=== PATIENT | female | born 1945 | race Caucasian/White ===

== ENCOUNTER 2020-10-23 21:03 | Inpatient (IN) | payer MEDICARE, BC ==
[2020-10-23] MEDS ORDERED: PANTOPRAZOLE 40 MG/10 ML VIAL IVP STA (21:23)
[2020-10-23] MEDS ORDERED: SODIUM CHLORIDE 0.9% 1,000 ML IV STA ×2 (21:23→23:58)
[2020-10-23] MEDS ORDERED: cefTRIAXone IN SWFI 1,000 MG/10 ML SYRINGE IVP STA (21:32)
[2020-10-23 22:05] LABS: Basophils # (A) 0.1 k/uL (0-0.2); Basophils % (A) 0 %; Eosinophils # (A) 0.1 k/uL (0-0.7); Eosinophils % (A) 1 %; HCT 47.5 % (34.0-46.0); HGB 15.9 gm/dL (11.4-16.0); Lymphocytes # (A) 2.6 k/uL (1.0-4.8); Lymphocytes % (A) 20 %; MCH 32.3 pg (25.0-35.0); MCHC 33.6 g/dL (31.0-37.0); MCV 96.2 fL (80.0-100.0); Mean Platelet Volume 7.4; Monocytes # (A) 0.4 k/uL (0-1.0); Monocytes % (A) 3 %; Neutrophils # (A) 9.6 k/uL (1.3-7.7); Neutrophils % (A) 74 %; Platelet Count 246 k/uL (150-450); RBC 4.94 m/uL (3.80-5.40); RDW 12.8 % (11.5-15.5); WBC 12.9 k/uL (3.8-10.6)
--- NOTE | 2020-10-23 22:06 | ED ---
Abdominal Pain HPI - General Chief Complaint: Abdominal Pain Stated Complaint: abd pain, fever Time Seen by Provider: 10/23/20 21:12 Source: patient Mode of arrival: ambulatory Limitations: no limitations - History of Present Illness Initial Comments: 74-year-old female presents to emergency Department with a chief complaint of abdominal pain. Patient reports she began having some lower abdominal symptoms about 2 days ago. However, last night she states the pain increased in severity. States it as constant and dull in nature. 10. States it is worse with left to right rotation and palpation to the region. Does not seem to postprandial. She denies any radiation of the pain. Does report feeling slightly nauseous but denies any vomiting or diarrhea. States her last bowel movement was yesterday. States she does have decreased appetite due to the pain. She denies any vaginal urinary symptoms. Denies any chest pain shortness of breath. Denies any fevers or chills. Vaccinated. - Related Data Home Medications Medication Instructions Recorded Confirmed Aspirin EC [Ecotrin Low Dose] 81 mg PO Q48H 10/23/20 10/23/20 Calcium Carbonate/Vitamin D3 1 tab PO DAILY 10/23/20 10/23/20 [Calcium 500 mg-Vit D3 5 mcg (200 Unit)] Cholecalciferol [Vitamin D3 (25 25 mcg PO DAILY 10/23/20 10/23/20 Mcg = 1000 Iu)] Citalopram Hydrobromide [CeleXA] 10 mg PO DAILY 10/23/20 10/23/20 Levothyroxine Sodium [Synthroid] 88 mcg PO DAILY 10/23/20 10/23/20 Pravastatin Sodium [Pravachol] 40 mg PO DAILY 10/23/20 10/23/20 Ubidecarenone [Co Q-10] 100 mg PO DAILY 10/23/20 10/23/20 Allergies Allergy/AdvReac Type Severity Reaction Status Date / Time No Known Allergies Allergy Verified 10/23/20 22:41 Review of Systems ROS Statement: Those systems with pertinent positive or pertinent negative responses have been documented in the HPI. ROS Other: All systems not noted in ROS Statement are negative. Past Medical History Past Medical History: No Reported History History of Any Multi-Drug Resistant Organisms: None Reported Past Surgical History: Orthopedic Surgery Past Psychological History: Anxiety Smoking Status: Current some day smoker Past Alcohol Use History: Occasional Past Drug Use History: None Reported General Exam Limitations: no limitations General appearance: alert, in no apparent distress Head exam: Present: atraumatic, normocephalic, normal inspection Eye exam: Present: normal appearance, PERRL, EOMI Pupils: Present: normal accommodation ENT exam: Present: normal exam, normal oropharynx, mucous membranes moist Neck exam: Present: normal inspection, full ROM. Absent: tenderness Respiratory exam: Present: normal lung sounds bilaterally. Absent: respiratory distress, wheezes, rales, rhonchi, stridor, chest wall tenderness, accessory muscle use Cardiovascular Exam: Present: regular rate, normal rhythm, normal heart sounds. Absent: systolic murmur, diastolic murmur GI/Abdominal exam: Present: soft, tenderness (Diffuse lower abdominal tenderness. Right lower quadrant tenderness.). Absent: distended, guarding, rebound, rigid Extremities exam: Present: normal inspection, full ROM, normal capillary refill. Absent: tenderness Back exam: Present: normal inspection, full ROM. Absent: tenderness, CVA tenderness (R), CVA tenderness (L) Neurological exam: Present: alert, oriented X3, normal gait Psychiatric exam: Present: normal affect, normal mood Skin exam: Present: warm, dry, intact, normal color Course Vital Signs 10/23/20 21:04 Temperature 99.4 F Pulse Rate 109 H Respiratory 22 Rate Blood Pressure 127/71 O2 Sat by Pulse 97 Oximetry Medical Decision Making - Medical Decision Making 74-year-old female presents to emergency Department with a chief complaint of abdominal pain. On physical examination, lower abdominal and right lower quadrant tenderness. CBC reveals mild leukocytosis 12,000. She does have elevated lipase of 600. Not an alcoholic drinker. CT of abdomen of abdomen and pelvis proximal colon diverticulitis. Patient also has a distended gallbladder but cholecystitis cannot be excluded. Patient will be admitted for evaluation. Ultrasound of the right upper quadrant pending. Patient will be started on Unasyn. Case discussed with who will admit. case discused with dr cantrell. - Lab Data Result diagrams: 10/23/20 21:30 10/23/20 21:30 Lab Results 10/23/20 10/23/20 10/23/20 Range/Units 21:30 21:30 21:30 WBC 12.9 H (3.8-10.6) k/uL RBC 4.94 (3.80-5.40) m/uL Hgb 15.9 (11.4-16.0) gm/dL Hct 47.5 H (34.0-46.0) % MCV 96.2 (80.0-100.0) fL MCH 32.3 (25.0-35.0) pg MCHC 33.6 (31.0-37.0) g/dL RDW 12.8 (11.5-15.5) % Plt Count 246 (150-450) k/uL MPV 7.4 Neutrophils % 74 % Lymphocytes % 20 % Monocytes % 3 % Eosinophils % 1 % Basophils % 0 % Neutrophils # 9.6 H (1.3-7.7) k/uL Lymphocytes # 2.6 (1.0-4.8) k/uL Monocytes # 0.4 (0-1.0) k/uL Eosinophils # 0.1 (0-0.7) k/uL Basophils # 0.1 (0-0.2) k/uL Sodium 135 L (137-145) mmol/L Potassium 3.9 (3.5-5.1) mmol/L Chloride 103 (98-107) mmol/L Carbon Dioxide 22 (22-30) mmol/L Anion Gap 10 mmol/L BUN 18 H (7-17) mg/dL Creatinine 0.54 (0.52-1.04) mg/dL Est GFR (CKD-EPI)AfAm >90 (>60 ml/min/1.73 sqM) Est GFR (CKD-EPI)NonAf >90 (>60 ml/min/1.73 sqM) Glucose 113 H (74-99) mg/dL Plasma Lactic Acid Miguelangel 0.8 (0.7-2.0) mmol/L Calcium 9.5 (8.4-10.2) mg/dL Total Bilirubin 0.8 (0.2-1.3) mg/dL AST 23 (14-36) U/L ALT 16 (4-34) U/L Alkaline Phosphatase 102 (38-126) U/L Total Protein 6.8 (6.3-8.2) g/dL Albumin 4.1 (3.5-5.0) g/dL Lipase 563 H (23-300) U/L Coronavirus (PCR) (Not Detectd) 10/23/20 Range/Units 21:34 WBC (3.8-10.6) k/uL RBC (3.80-5.40) m/uL Hgb (11.4-16.0) gm/dL Hct (34.0-46.0) % MCV (80.0-100.0) fL MCH (25.0-35.0) pg MCHC (31.0-37.0) g/dL RDW (11.5-15.5) % Plt Count (150-450) k/uL MPV Neutrophils % % Lymphocytes % % Monocytes % % Eosinophils % % Basophils % % Neutrophils # (1.3-7.7) k/uL Lymphocytes # (1.0-4.8) k/uL Monocytes # (0-1.0) k/uL Eosinophils # (0-0.7) k/uL Basophils # (0-0.2) k/uL Sodium (137-145) mmol/L Potassium (3.5-5.1) mmol/L Chloride (98-107) mmol/L Carbon Dioxide (22-30) mmol/L Anion Gap mmol/L BUN (7-17) mg/dL Creatinine (0.52-1.04) mg/dL Est GFR (CKD-EPI)AfAm (>60 ml/min/1.73 sqM) Est GFR (CKD-EPI)NonAf (>60 ml/min/1.73 sqM) Glucose (74-99) mg/dL Plasma Lactic Acid Miguelangel (0.7-2.0) mmol/L Calcium (8.4-10.2) mg/dL Total Bilirubin (0.2-1.3) mg/dL AST (14-36) U/L ALT (4-34) U/L Alkaline Phosphatase (38-126) U/L Total Protein (6.3-8.2) g/dL Albumin (3.5-5.0) g/dL Lipase (23-300) U/L Coronavirus (PCR) Not Detected (Not Detectd) - EKG Data EKG Comments: Sinus rhythm Ventricular rate 98, IA 156, QRS 90, QTC 431. Disposition Clinical Impression: Elevated lipase, Diverticulitis Disposition: ADMITTED IP TO THIS HOSP Condition: Fair Is patient prescribed a controlled substance at d/c from ED?: No Referrals: Zechariah Corral DO [Primary Care Provider] - 1-2 days Time of Disposition: 00:01
[2020-10-23 22:23] LABS: ALT 16 U/L (4-34); AST 23 U/L (14-36); African American GFR (CKD) >90 (>60 ml/min/1.73 sqM); Albumin 4.1 g/dL (3.5-5.0); Alkaline Phosphatase 102 U/L (38-126); Anion Gap 10 mmol/L; Blood Urea Nitrogen 18 mg/dL (7-17); Calcium 9.5 mg/dL (8.4-10.2); Carbon Dioxide 22 mmol/L (22-30); Chloride 103 mmol/L (98-107); Glucose 113 mg/dL (74-99); Lipase 563 U/L (23-300); Non-African American GFR(CKD) >90 (>60 ml/min/1.73 sqM); Potassium 3.9 mmol/L (3.5-5.1); Sodium 135 mmol/L (137-145); Total Bilirubin 0.8 mg/dL (0.2-1.3); Total Protein 6.8 g/dL (6.3-8.2)
--- NOTE | 2020-10-23 23:02 | CT ---
EXAMINATION TYPE: CT abdomen pelvis w con DATE OF EXAM: 10/23/2020 COMPARISON: None HISTORY: RLQ pain CT DLP: 1166.9 mGycm Automated exposure control for dose reduction was used. CONTRAST: Performed with IV Contrast, patient injected with 100 mL of Isovue 300. Images obtained from the diaphragm to the floor the pelvis with IV contrast. Lung bases are clear of infiltrate. There is no pleural effusion. Heart size is normal. There is no p ericardial effusion. Liver spleen stomach pancreas appear intact. The bile ducts are not dilated. There are several calcif ied gallstones. Gallbladder is distended and measures 4.4 cm in diameter. There is no adrenal mass. Kidneys show satisfactory contrast opacification. There is no hydronephrosi s. The ureters are not dilated. Delayed images show normal renal excretion. There is no retroperitone al adenopathy. Bladder distends smoothly. There is no inguinal hernia. There are numerous sigmoid diverticula. There is some mild fat stranding around the proximal sigmoid colon anteriorly. There is no bowel obstruction. Appendix is medial and inferior and appears normal. Lumbar vertebra have normal alignment. There is no compression fracture. Multilevel degenerative disc narrowing and vacuum disc is noted. The bony pelvis is intact. There is hypertrophic osteoarthritis in the right hip joint. Sacroiliac joints are intact. There is slight lumbar levoscoliosis. IMPRESSION: There is proximal sigmoid diverticulitis. No abscess fluid drainable pockets seen. Normal appendix. Cholelithiasis. Distended gallbladder could relate to gallbladder dysfunction. Cholecystitis not excl uded. Extensive colonic diverticulosis.
[2020-10-23] MEDS ORDERED: NALOXONE 0.4 MG/ML 1 ML VIAL IV PRN (23:56)
[2020-10-23] MEDS ORDERED: ONDANSETRON 4 MG/2 ML VIAL IVP PRN (23:58)
[2020-10-23] MEDS ORDERED: Acetaminophen-Codeine 300-30mg TAB PO STA (23:58)
[2020-10-24 00:10] LABS: Appearance,Urine Clear (Clear); Bilirubin,Urine Negative (Negative); Blood,Urine Negative (Negative); Color,Urine Light Yellow; Glucose,Urine (UA) Negative (Negative); Ketones,Urine 1+ (Negative); Leukocyte Esterase,Urine Trace (Negative); Mucus,Urine Rare /hpf; Nitrite,Urine Negative (Negative); Protein,Urine Negative (Negative); RBC,Urine <1 /hpf (0-5); Specific Gravity,Urine 1.023 (1.001-1.035); Squamous Epithelial Cell,Urine <1 /hpf (0-4); Urobilinogen,Urine <2.0 mg/dL (<2.0); WBC,Urine 4 /hpf (0-5)
--- NOTE | 2020-10-24 08:08 | US ---
EXAMINATION TYPE: US gallbladder DATE OF EXAM: 10/24/2020 COMPARISON: NONE CLINICAL HISTORY: 74-year-old female pain. With diverticulitis patient with CT that showed GB stones EXAM MEASUREMENTS: Liver Length: 18.8 cm Gallbladder Wall: 0.2 cm CBD: 0.9 cm Right Kidney: 10.0 x 4.4 x 4.6 cm Pancreas: Suboptimal visualization of the pancreatic tail. Visualized portions within normal limits. Liver: wnl Gallbladder: mobile stones seen with no wall thickening, slightly hydropic Evidence for sonographic Gibbs's sign: no CBD: Mildly dilated. Right Kidney: wnl IMPRESSION: 1. Multiple gallstones. Gallbladder mildly hydropic. No wall thickening, surrounding fluid, or sonogr aphic Gibbs sign to suggest acute cholecystitis. The hydropic change may relate to fasting state. Ei ther follow-up ultrasound or HIDA scan can be performed if indicated. 2. Bile duct is mildly dilated at 9 mm. This is slightly more than expected for the patient's age. It may still be chronic. Correlate with alkaline phosphatase and bilirubin levels to exclude early bili fani obstruction.
[2020-10-24] MEDS ORDERED: ASPIRIN 81 MG PO SCH (10:45)
[2020-10-24] MEDS: PRAVASTATIN SODIUM 40 MG TAB PO SCH (11:38)
[2020-10-24] MEDS: LEVOTHYROXINE 88 MCG TAB PO SCH (11:38)
[2020-10-24] MEDS: ENOXAPARIN 40 MG/0.4 ML SYRINGE SQ SCH (11:41)
[2020-10-24] MEDS: PIPERACILLIN-TAZOBACTAM 3.375 GM in SODIUM CHLORIDE 0.9% 100 ML IVPB SCH ×2 (11:45→19:25)
[2020-10-24] MEDS: CITALOPRAM HYDROBROMIDE 10 MG TAB PO SCH (11:45)
--- NOTE | 2020-10-24 11:52 | P.GSCN ---
<Glenna Barragan - Last Filed: 10/24/20 11:40> History of Present Illness Consult date: 10/24/20 History of present illness: CHIEF COMPLAINT: Left lower quadrant abdominal pain HISTORY OF PRESENT ILLNESS: This is a 74-year-old female who presents to the hospital with complaints of left lower quadrant abdominal pain and low-grade fevers at home. She reports that she is had pain for about 3 days. She rates the pain about 8 out of 10. She was that she felt very on comfortable. She had a temp at home in the 100.5. She's been taking Tylenol to help with the pain. She denies any nausea vomiting. She does have issues with constipation. But had had bowel movements with no blood noted. Patient's last colonoscopy was about 10 years ago and she reports that it was normal. She had a computed tomography scan of abdomen and pelvis showing proximal sigmoid diverticulitis. No abscess. Normal appendix. Cholelithiasis. Distended gallbladder could relate to gallbladder dysfunction. Cholecystitis not excluded. Extensive colonic diverticulosis. Gallbladder ultrasound shows multiple gallstones. Gallbladder mildly hypertropic. No wall thickening, surrounding fluid or Gibbs sign to suggest acute cholecystitis. The change may relate to fasting state. Bile duct is mildly dilated at 9 mm. It may be chronic. Patient denies any right upper quadrant abdominal pain. She denies any nausea or vomiting after eating or any pain after eating. She denies any sensitivity to fatty foods or greasy foods. Surgical consult placed for gallstones. Surgical history includes a partial hysterectomy. PAST MEDICAL HISTORY: See list. PAST SURGICAL HISTORY: See list. MEDICATIONS: See list. ALLERGIES: See list. SOCIAL HISTORY: No illicit drug use. REVIEW OF SYSTEMS: CONSTITUTIONAL: Denies fever or chills. HEENT: Denies blurred vision, vision changes, or eye pain. Denies hemoptysis CARDIOVASCULAR: Denies chest pain or pressure. RESPIRATORY: No shortness of breath. GASTROINTESTINAL: See HPI for pertinent findings HEMATOLOGIC: Denies bleeding disorders. GENITOURINARY: Denies any blood in urine or increased urinary frequency. SKIN: Denies pruitis. Denies rash. PHYSICAL EXAM: VITAL SIGNS: Reviewed GENERAL: Well-developed in no acute distress. HEENT: No sclera icterus. Extraocular movements grossly intact. Moist buccal mucosa. Head is atraumatic, normocephalic. No nasal drainage. ABDOMEN: Soft. Nondistended. Left lower quadrant tenderness with palpation NEUROLOGIC: Alert and oriented. Cranial nerves II through XII grossly intact. LABORATORY DATA: WBC is 12.9 hemoglobin 15.9 platelets 246 sodium 135 creatinine 0.5 for lactic 0.8 LFTs normal Total bili normal at 0.8 alk phos 102 lipase 563 UA negative for infection Covid not detected IMAGING: CAT scan and ultrasound findings as stated above ASSESSMENT: 1. Acute diverticulitis of the sigmoid colon 2. Asymptomatic cholelithiasis 3. Elevated lipase PLAN: -Further recommendations forthcoming per surgeon -Continue antibiotics for the diverticulitis -Continue conservative management Thank you for this consultation Physician [employer] Beauty [employer] Assistant note has been reviewed by physician. Signing provider agrees with the documented findings, assessment, and plan of care. Past Medical History Past Medical History: No Reported History, Hyperlipidemia, Osteoarthritis (OA), Thyroid Disorder History of Any Multi-Drug Resistant Organisms: None Reported Past Surgical History: Orthopedic Surgery Additional Past Surgical History / Comment(s): total left knee, right toe bone spur removal, partial hyterectomy Past Anesthesia/Blood Transfusion Reactions: No Reported Reaction Past Psychological History: Anxiety Smoking Status: Current some day smoker Past Alcohol Use History: Occasional Past Drug Use History: None Reported Medications and Allergies Home Medications Medication Instructions Recorded Confirmed Type Aspirin EC [Ecotrin Low Dose] 81 mg PO Q48H 10/23/20 10/23/20 History Calcium Carbonate/Vitamin D3 1 tab PO DAILY 10/23/20 10/23/20 History [Calcium 500 mg-Vit D3 5 mcg (200 Unit)] Cholecalciferol [Vitamin D3 (25 25 mcg PO DAILY 10/23/20 10/23/20 History Mcg = 1000 Iu)] Citalopram Hydrobromide [CeleXA] 10 mg PO DAILY 10/23/20 10/23/20 History Levothyroxine Sodium [Synthroid] 88 mcg PO DAILY 10/23/20 10/23/20 History Pravastatin Sodium [Pravachol] 40 mg PO DAILY 10/23/20 10/23/20 History Ubidecarenone [Co Q-10] 100 mg PO DAILY 10/23/20 10/23/20 History Allergies Allergy/AdvReac Type Severity Reaction Status Date / Time No Known Allergies Allergy Verified 10/23/20 22:41 Surgical - Exam Vital Signs Temp Pulse Resp BP Pulse Ox 99.4 F 109 H 22 127/71 97 10/23/20 21:04 10/23/20 21:04 10/23/20 21:04 10/23/20 21:04 10/23/20 21:04 Results - Labs 10/23/20 21:30 10/23/20 21:30 Abnormal Lab Results - Last 24 Hours (Table) 10/23/20 10/23/20 10/24/20 Range/Units 21:30 21:30 00:00 WBC 12.9 H (3.8-10.6) k/uL Hct 47.5 H (34.0-46.0) % Neutrophils # 9.6 H (1.3-7.7) k/uL Sodium 135 L (137-145) mmol/L BUN 18 H (7-17) mg/dL Glucose 113 H (74-99) mg/dL Lipase 563 H (23-300) U/L Urine Ketones 1+ H (Negative) Ur Leukocyte Esterase Trace H (Negative) Urine Mucus Rare H (None) /hpf Diabetes panel 10/23/20 Range/Units 21:30 Sodium 135 L (137-145) mmol/L Potassium 3.9 (3.5-5.1) mmol/L Chloride 103 (98-107) mmol/L Carbon Dioxide 22 (22-30) mmol/L BUN 18 H (7-17) mg/dL Creatinine 0.54 (0.52-1.04) mg/dL Glucose 113 H (74-99) mg/dL Calcium 9.5 (8.4-10.2) mg/dL AST 23 (14-36) U/L ALT 16 (4-34) U/L Alkaline Phosphatase 102 (38-126) U/L Total Protein 6.8 (6.3-8.2) g/dL Albumin 4.1 (3.5-5.0) g/dL Calcium panel 10/23/20 Range/Units 21:30 Calcium 9.5 (8.4-10.2) mg/dL Albumin 4.1 (3.5-5.0) g/dL Pituitary panel 10/23/20 Range/Units 21:30 Sodium 135 L (137-145) mmol/L Potassium 3.9 (3.5-5.1) mmol/L Chloride 103 (98-107) mmol/L Carbon Dioxide 22 (22-30) mmol/L BUN 18 H (7-17) mg/dL Creatinine 0.54 (0.52-1.04) mg/dL Glucose 113 H (74-99) mg/dL Calcium 9.5 (8.4-10.2) mg/dL Adrenal panel 10/23/20 Range/Units 21:30 Sodium 135 L (137-145) mmol/L Potassium 3.9 (3.5-5.1) mmol/L Chloride 103 (98-107) mmol/L Carbon Dioxide 22 (22-30) mmol/L BUN 18 H (7-17) mg/dL Creatinine 0.54 (0.52-1.04) mg/dL Glucose 113 H (74-99) mg/dL Calcium 9.5 (8.4-10.2) mg/dL Total Bilirubin 0.8 (0.2-1.3) mg/dL AST 23 (14-36) U/L ALT 16 (4-34) U/L Alkaline Phosphatase 102 (38-126) U/L Total Protein 6.8 (6.3-8.2) g/dL Albumin 4.1 (3.5-5.0) g/dL <Ming Martinez - Last Filed: 10/24/20 16:18> History of Present Illness History of present illness: As above. Patient admitted with left lower quadrant pain and acute diverticulitis. We were however apparently consulted for cholelithiasis. Patient says her left lower quadrant pain is improving. No upper abdominal discomfort. No inflammatory changes seen on ultrasound at this time. Continue antibiotics for diverticulitis. Continue gradually advancing diet. No surgical intervention planned for cholelithiasis however outpatient follow-up to discuss colonoscopy will be arranged. Surgical - Exam Vital Signs Temp Pulse Resp BP Pulse Ox 99.4 F 109 H 22 127/71 97 10/23/20 21:04 10/23/20 21:04 10/23/20 21:04 10/23/20 21:04 10/23/20 21:04 Results - Labs 10/23/20 21:30 10/23/20 21:30 Abnormal Lab Results - Last 24 Hours (Table) 10/23/20 10/23/20 10/24/20 Range/Units 21:30 21:30 00:00 WBC 12.9 H (3.8-10.6) k/uL Hct 47.5 H (34.0-46.0) % Neutrophils # 9.6 H (1.3-7.7) k/uL Sodium 135 L (137-145) mmol/L BUN 18 H (7-17) mg/dL Glucose 113 H (74-99) mg/dL Lipase 563 H (23-300) U/L Urine Ketones 1+ H (Negative) Ur Leukocyte Esterase Trace H (Negative) Urine Mucus Rare H (None) /hpf Diabetes panel 10/23/20 Range/Units 21:30 Sodium 135 L (137-145) mmol/L Potassium 3.9 (3.5-5.1) mmol/L Chloride 103 (98-107) mmol/L Carbon Dioxide 22 (22-30) mmol/L BUN 18 H (7-17) mg/dL Creatinine 0.54 (0.52-1.04) mg/dL Glucose 113 H (74-99) mg/dL Calcium 9.5 (8.4-10.2) mg/dL AST 23 (14-36) U/L ALT 16 (4-34) U/L Alkaline Phosphatase 102 (38-126) U/L Total Protein 6.8 (6.3-8.2) g/dL Albumin 4.1 (3.5-5.0) g/dL Calcium panel 10/23/20 Range/Units 21:30 Calcium 9.5 (8.4-10.2) mg/dL Albumin 4.1 (3.5-5.0) g/dL Pituitary panel 10/23/20 Range/Units 21:30 Sodium 135 L (137-145) mmol/L Potassium 3.9 (3.5-5.1) mmol/L Chloride 103 (98-107) mmol/L Carbon Dioxide 22 (22-30) mmol/L BUN 18 H (7-17) mg/dL Creatinine 0.54 (0.52-1.04) mg/dL Glucose 113 H (74-99) mg/dL Calcium 9.5 (8.4-10.2) mg/dL Adrenal panel 10/23/20 Range/Units 21:30 Sodium 135 L (137-145) mmol/L Potassium 3.9 (3.5-5.1) mmol/L Chloride 103 (98-107) mmol/L Carbon Dioxide 22 (22-30) mmol/L BUN 18 H (7-17) mg/dL Creatinine 0.54 (0.52-1.04) mg/dL Glucose 113 H (74-99) mg/dL Calcium 9.5 (8.4-10.2) mg/dL Total Bilirubin 0.8 (0.2-1.3) mg/dL AST 23 (14-36) U/L ALT 16 (4-34) U/L Alkaline Phosphatase 102 (38-126) U/L Total Protein 6.8 (6.3-8.2) g/dL Albumin 4.1 (3.5-5.0) g/dL
--- NOTE | 2020-10-24 12:26 | P.HPIM ---
History of Present Illness H&P Date: 10/24/20 Chief Complaint: Abdominal pain History of presenting complaint: This is a very pleasant 74-year-old patient of Dr. Corral. Chronic stable medical conditions include hyperlipidemia, osteoarthritis, hypothyroid. Patient is fairly active. About 4 days ago that is on Wednesday patient started developing some lower abdominal discomfort. As a day wore on the pain became more severe. She felt she may low-grade fever. No nausea vomiting. Normally has a bowel movement every day. Patient did not have a bowel movement yesterday or today. Presented to the ER. Computed tomography scan did show acute diverticulitis. Started on IV ceftriaxone. Feeling a bit better. Sitting up in a chair. No right upper quadrant pain. Review of systems: GEN.: Tired EYES: None HEENT: None NECK: None RESPIRATORY: None CARDIOVASCULAR: None GASTROINTESTINAL: As above GENITOURINARY: None MUSCULOSKELETAL: Joint pains LYMPHATICS: None HEMATOLOGICAL: None PSYCHIATRY: None NEUROLOGICAL: None Past medical history to include: Hyperlipidemia, osteoarthritis, hypothyroid Social history: . Lives alone. Alcohol and smoking socially Family history: Reviewed, noncontributory to presentation Physical examination: VITAL SIGNS: 99.4, 109, 22, 127/71, 97% room air upon presentation GENERAL: BMI 35.5, sitting up to chair, comfortable. EYES: Pupils equal. Conjunctiva normal. HEENT: External appearance of nose and ears normal, oral cavity grossly normal. NECK: JVD not raised; masses not palpable. HEART: First and second heart sounds are normal; no edema. LUNGS: Respiratory rate normal; clear to auscultation. ABDOMEN: Soft, mild tenderness, liver spleen not palpable, no masses palpable. PSYCH: Alert and oriented x3; mood and affect normal. MUSCULAR skeletal: Evidence of OA especially in the hands NEUROLOGICAL: Cranial nerves grossly intact; no facial asymmetry, power and sensation grossly intact. LYMPHATICS: No lymph nodes palpable in the axilla and neck INVESTIGATIONS, reviewed in the clinical context: WBC 12.9 hemoglobin 15.9 platelets 246 potassium 3.9 creatinine 0.5 for UA unremarkable Coronavirus [PCR]: Not detected Ultrasound gallbladder: Multiple gallstones. No wall thickening. Negative Gibbs sign. Hydropic change. Bile duct 9 mm. Computed tomography scan of the abdomen pelvis: Proximal sigmoid doubt typhlitis. Normal appendix. Cholelithiasis. Extensive colonic diverticulosis. Assessment and plan: -Acute sigmoid diverticulitis coming on over a span of 4 days. Tolerating clear liquids. Advance to full liquids this morning and hopefully to soft bland tomorrow morning depending on clinical course. IV Zosyn -Colonic diverticulosis extensive -Obesity BMI 35.5 Weight loss measures and follow-up with PCP -Asymptomatic gallstones Surgical consult -Hyperlipidemia Pravachol 40 mg daily -Hypothyroid Synthroid 88 g daily -Primary osteoarthritis Use pain medications as needed -Anxiety not otherwise specified Celexa 10 mg daily Care was discussed the patient. Questions answered. On clear liquids. Advance to full liquids and soft bland as tolerated. Home medications resumed. IV Zosyn. IV fluids. Lovenox for DVT prophylaxis. Increase activity as tolerated. General surgery consultation Past Medical History Past Medical History: No Reported History, Hyperlipidemia, Osteoarthritis (OA), Thyroid Disorder History of Any Multi-Drug Resistant Organisms: None Reported Past Surgical History: Orthopedic Surgery Additional Past Surgical History / Comment(s): total left knee, right toe bone spur removal, partial hyterectomy Past Anesthesia/Blood Transfusion Reactions: No Reported Reaction Past Psychological History: Anxiety Smoking Status: Current some day smoker Past Alcohol Use History: Occasional Past Drug Use History: None Reported Medications and Allergies Home Medications Medication Instructions Recorded Confirmed Type Aspirin EC [Ecotrin Low Dose] 81 mg PO Q48H 10/23/20 10/23/20 History Calcium Carbonate/Vitamin D3 1 tab PO DAILY 10/23/20 10/23/20 History [Calcium 500 mg-Vit D3 5 mcg (200 Unit)] Cholecalciferol [Vitamin D3 (25 25 mcg PO DAILY 10/23/20 10/23/20 History Mcg = 1000 Iu)] Citalopram Hydrobromide [CeleXA] 10 mg PO DAILY 10/23/20 10/23/20 History Levothyroxine Sodium [Synthroid] 88 mcg PO DAILY 10/23/20 10/23/20 History Pravastatin Sodium [Pravachol] 40 mg PO DAILY 10/23/20 10/23/20 History Ubidecarenone [Co Q-10] 100 mg PO DAILY 10/23/20 10/23/20 History Allergies Allergy/AdvReac Type Severity Reaction Status Date / Time No Known Allergies Allergy Verified 10/23/20 22:41 Physical Exam Vitals: Vital Signs Temp Pulse Pulse Resp BP BP Pulse Ox 10/24/20 05:15 98.3 F 83 18 108/58 97 10/24/20 00:00 98.3 F 91 18 113/71 96 10/23/20 21:04 99.4 F 109 H 22 127/71 97 Intake and Output 10/23/20 10/24/20 10/24/20 22:59 06:59 14:59 Other: Weight 77.111 kg 77.111 kg Results CBC & Chem 7: 10/23/20 21:30 10/23/20 21:30 Labs: Abnormal Lab Results - Last 24 Hours (Table) 10/23/20 10/23/20 10/24/20 Range/Units 21:30 21:30 00:00 WBC 12.9 H (3.8-10.6) k/uL Hct 47.5 H (34.0-46.0) % Neutrophils # 9.6 H (1.3-7.7) k/uL Sodium 135 L (137-145) mmol/L BUN 18 H (7-17) mg/dL Glucose 113 H (74-99) mg/dL Lipase 563 H (23-300) U/L Urine Ketones 1+ H (Negative) Ur Leukocyte Esterase Trace H (Negative) Urine Mucus Rare H (None) /hpf Thrombosis Risk Factor Assmnt - Choose All That Apply Each Factor Represents 1 point: Obesity (BMI >25) Each Risk Factor Represents 2 Points: Age 61-74 years Other congenital or acquired thrombophilia - If yes, enter type in comment: No Thrombosis Risk Factor Assessment Total Risk Factor Score: 3 Thrombosis Risk Factor Assessment Level: Moderate Risk
[2020-10-24 20:16] VITALS: RESP 16
[2020-10-25] MEDS: PIPERACILLIN-TAZOBACTAM 3.375 GM in SODIUM CHLORIDE 0.9% 100 ML IVPB SCH ×2 (01:28→11:25)
[2020-10-25 04:56] VITALS: PULSE 75
[2020-10-25] MEDS: LEVOTHYROXINE 88 MCG TAB PO SCH (05:33)
[2020-10-25] MEDS: PRAVASTATIN SODIUM 40 MG TAB PO SCH (08:34)
[2020-10-25] MEDS: CITALOPRAM HYDROBROMIDE 10 MG TAB PO SCH (08:34)
[2020-10-25] MEDS: ENOXAPARIN 40 MG/0.4 ML SYRINGE SQ SCH (08:36)
[2020-10-25 10:20] LABS: Basophils % (A) 1 %; Eosinophils # (A) 0.1 k/uL (0-0.7); Eosinophils % (A) 2 %; HCT 43.2 % (34.0-46.0); HGB 14.3 gm/dL (11.4-16.0); Lymphocytes # (A) 1.7 k/uL (1.0-4.8); Lymphocytes % (A) 23 %; MCH 32.3 pg (25.0-35.0); MCHC 33.1 g/dL (31.0-37.0); MCV 97.5 fL (80.0-100.0); Mean Platelet Volume 7.3; Monocytes # (A) 0.3 k/uL (0-1.0); Monocytes % (A) 4 %; Neutrophils # (A) 5.1 k/uL (1.3-7.7); Neutrophils % (A) 70 %; Platelet Count 292 k/uL (150-450); RBC 4.43 m/uL (3.80-5.40); RDW 12.6 % (11.5-15.5); WBC 7.4 k/uL (3.8-10.6)
--- NOTE | 2020-10-25 12:44 | P.PN ---
<Glenna Barragan - Last Filed: 10/25/20 12:40> Subjective Progress Note Date: 10/25/20 CHIEF COMPLAINT: Left lower quadrant abdominal pain HISTORY OF PRESENT ILLNESS: Patient reports that her left lower quadrant abdominal pain has improved greatly. She is tolerating the full liquid diet. She denies any right upper quadrant abdominal pain. Denies any nausea vomiting after eating. She's afebrile. White count has normalized at 7.4 lipase normal at 57. she is having regular bowel movements. Patient would like to go home today. PHYSICAL EXAM: VITAL SIGNS: Reviewed. GENERAL: Well-developed in no acute distress. HEENT: No sclera icterus. Extraocular movements grossly intact. Moist buccal mucosa. Head is atraumatic, normocephalic. ABDOMEN: Soft. Nondistended. Minimal tenderness left lower quadrant NEUROLOGIC: Alert and oriented. Cranial nerves II through XII grossly intact. ASSESSMENT: 1. Acute diverticulitis of the sigmoid colon 2. Asymptomatic cholelithiasis 3. Elevated lipase resolved PLAN: -Patient can be discharged from surgical standpoint -Continue antibiotics for diverticulitis -Recommend colonoscopy outpatient -No surgical intervention planned for cholelithiasis Physician Stunt Driver note has been reviewed by physician. Signing provider agrees with the documented findings, assessment, and plan of care. Objective - Vital Signs Vital signs: Vital Signs Temp 98.6 F 10/25/20 04:55 Pulse 75 10/25/20 04:55 Resp 16 10/25/20 04:55 BP 121/78 10/25/20 04:55 Pulse Ox 95 10/25/20 04:55 Intake & Output 10/24/20 10/25/20 10/25/20 18:59 06:59 18:59 Intake Total 100 Balance 100 Intake: Intake, IV Titration 100 Amount Piperacillin-Tazobactam 3 100 .375 gm In Sodium Chloride 0.9% 100 ml @ 25 mls/hr IVPB Q8H [facility] Rx#: [id number] Other: Voiding Method Toilet # Voids 2 1 - Labs CBC & Chem 7: 10/25/20 09:56 10/23/20 21:30 Labs: Microbiology - Last 24 Hours (Table) 10/23/20 21:30 Blood Culture - Preliminary Blood No Growth after 24 hours 10/23/20 21:30 Blood Culture - Preliminary Blood No Growth after 24 hours <Ming Martinez - Last Filed: 10/25/20 13:24> Subjective As above. Patient doing well today. Pain is resolved. We'll sign off. Follow-up as outpatient to schedule colonoscopy. Please call if needed. Objective - Vital Signs Vital signs: Vital Signs Temp 98.1 F 10/25/20 13:00 Pulse 75 10/25/20 13:00 Resp 16 10/25/20 13:00 BP 127/73 10/25/20 13:00 Pulse Ox 94 L 10/25/20 13:00 Intake & Output 10/24/20 10/25/20 10/25/20 18:59 06:59 18:59 Intake Total 100 Balance 100 Intake: Intake, IV Titration 100 Amount Piperacillin-Tazobactam 3 100 .375 gm In Sodium Chloride 0.9% 100 ml @ 25 mls/hr IVPB Q8H [facility] Rx#: [id number] Other: Voiding Method Toilet # Voids 2 1 - Labs CBC & Chem 7: 10/25/20 09:56 10/23/20 21:30 Labs: Microbiology - Last 24 Hours (Table) 10/23/20 21:30 Blood Culture - Preliminary Blood No Growth after 24 hours 10/23/20 21:30 Blood Culture - Preliminary Blood No Growth after 24 hours
[2020-10-25 13:12] VITALS: BP 127/73; TEMP 98.1
--- NOTE | 2020-10-25 19:44 | P.DS ---
Providers Date of admission: 10/24/20 00:36 Expected date of discharge: 10/25/20 Attending physician: Brian Solorio Consults: 10/24/20 10:33 Consult Physician Routine Consulting Provider: Ming Martinez Consult Reason/Comments: gallstones Do you want consulting provider notified?: Yes Primary care physician: Zechariah Oliver [facility] Course: Chief Complaint: Abdominal pain History of presenting complaint: This is a very pleasant 74-year-old patient of Dr. Corral. Chronic stable medical conditions include hyperlipidemia, osteoarthritis, hypothyroid. Patient is fairly active. About 4 days ago that is on Wednesday patient started developing some lower abdominal discomfort. As a day wore on the pain became more severe. She felt she may low-grade fever. No nausea vomiting. Normally has a bowel movement every day. Patient did not have a bowel movement yesterday or today. Presented to the ER. Computed tomography scan did show acute diverticulitis. Started on IV ceftriaxone. Feeling a bit better. Sitting up in a chair. No right upper quadrant pain. October 25: Feeling much better. No abdominal pain. No nausea vomiting. Started at soft bland diet this morning. Care was discussed in detail with the patient. Questions answered. DC home on course of Augmentin. Daughter present. Outpatient colonoscopy by surgeon. Discussion and discharge planning more than 35 minutes Consultation: Dr. Corral Past medical history to include: Hyperlipidemia, osteoarthritis, hypothyroid Social history: . Lives alone. Alcohol and smoking socially Family history: Reviewed, noncontributory to presentation Physical examination: VITAL SIGNS: 98.1, 75, 16, 127/73, 94% room air GENERAL: BMI 35.5, sitting up to chair, comfortable. EYES: Pupils equal. Conjunctiva normal. NECK: JVD not raised; masses not palpable. HEART: First and second heart sounds are normal; no edema. LUNGS: Respiratory rate normal; clear to auscultation. ABDOMEN: Soft, no tenderness, liver spleen not palpable, no masses palpable. PSYCH: Alert and oriented x3; mood and affect normal. MUSCULAR skeletal: Evidence of OA especially in the hands INVESTIGATIONS, reviewed in the clinical context: October 25: WBC 7.4 hemoglobin 14.3 platelets 292 WBC 12.9 hemoglobin 15.9 platelets 246 potassium 3.9 creatinine 0.5 for UA unremarkable Coronavirus [PCR]: Not detected Ultrasound gallbladder: Multiple gallstones. No wall thickening. Negative Gibbs sign. Hydropic change. Bile duct 9 mm. Computed tomography scan of the abdomen pelvis: Proximal sigmoid doubt typhlitis. Normal appendix. Cholelithiasis. Extensive colonic diverticulosis. Assessment and plan: -Acute sigmoid diverticulitis coming on over a span of 4 days. Improving IV Zosyn. DC home on course of Augmentin. Soft bland diet. Outpatient colonoscopy. -Colonic diverticulosis extensive -Obesity BMI 35.5 Weight loss measures and follow-up with PCP -Asymptomatic gallstones Seen by Dr. Fuller. No intervention -Hyperlipidemia Pravachol 40 mg daily -Hypothyroid Synthroid 88 g daily -Primary osteoarthritis Use pain medications as needed -Anxiety not otherwise specified Celexa 10 mg daily Disposition: Home Patient Condition at Discharge: Fair Plan - Discharge Summary Discharge Rx Participant: Yes New Discharge Prescriptions: New Amoxicillin/Potassium Clav [Augmentin 875-125 Tablet] 1 tab PO Q12HR #14 tab Continue Ubidecarenone [Co Q-10] 100 mg PO DAILY Cholecalciferol [Vitamin D3 (25 Mcg = 1000 Iu)] 25 mcg PO DAILY Calcium Carbonate/Vitamin D3 [Calcium 500 mg-Vit D3 5 mcg (200 Unit)] 1 tab PO DAILY Levothyroxine Sodium [Synthroid] 88 mcg PO DAILY Pravastatin Sodium [Pravachol] 40 mg PO DAILY Citalopram Hydrobromide [CeleXA] 10 mg PO DAILY Aspirin EC [Ecotrin Low Dose] 81 mg PO Q48H Discharge Medication List Aspirin EC [Ecotrin Low Dose] 81 mg PO Q48H 10/23/20 [History] Calcium Carbonate/Vitamin D3 [Calcium 500 mg-Vit D3 5 mcg (200 Unit)] 1 tab PO DAILY 10/23/20 [History] Cholecalciferol [Vitamin D3 (25 Mcg = 1000 Iu)] 25 mcg PO DAILY 10/23/20 [History] Citalopram Hydrobromide [CeleXA] 10 mg PO DAILY 10/23/20 [History] Levothyroxine Sodium [Synthroid] 88 mcg PO DAILY 10/23/20 [History] Pravastatin Sodium [Pravachol] 40 mg PO DAILY 10/23/20 [History] Ubidecarenone [Co Q-10] 100 mg PO DAILY 10/23/20 [History] Amoxicillin/Potassium Clav [Augmentin 875-125 Tablet] 1 tab PO Q12HR #14 tab 10/25/20 [Rx] Follow up Appointment(s)/Referral(s): Ming Martinez MD [Medical Doctor] - 11/20/20 2:15 pm Zechariah Corral DO [Primary Care Provider] - 1-2 days (office will call patient with appt time and date) Patient Instructions/Handouts: Diverticulitis (DC), Diverticulitis Diet (DC) Activity/Diet/Wound Care/Special Instructions: soft bland diet Discharge Disposition: HOME SELF-CARE
[2020-10-25] MEDS ORDERED: ENOXAPARIN 40 MG/0.4 ML SYRINGE SQ SCH (22:00)
== END 2020-10-25 15:45 | disposition home or self-care (01) | DRG 392 ==
LOC: EC 21:03 → 5NMEDONC 10-24 00:36
PROVIDERS: ADMIT Hospitalist; ATTEND Hospitalist
DX: K57.32 Diverticulitis of large intestine without perforation or abscess without bleeding (principal); E03.9 Hypothyroidism, unspecified; E66.9 Obesity, unspecified; E78.5 Hyperlipidemia, unspecified; F17.200 Nicotine dependence, unspecified, uncomplicated; F41.9 Anxiety disorder, unspecified; M19.91 Primary osteoarthritis, unspecified site; Z68.35 Body mass index [BMI] 35.0-35.9, adult; Z79.890 Hormone replacement therapy; Z79.899 Other long term (current) drug therapy; Z90.711 Acquired absence of uterus with remaining cervical stump; K82.8 Other specified diseases of gallbladder; K59.00 Constipation, unspecified; K80.20 Calculus of gallbladder without cholecystitis without obstruction; R74.8 Abnormal levels of other serum enzymes
CPT/HCPCS: 36415; 74177; 76705; 80053; 81001; 83605; 83690; 85025; 87040; 87635; 93005

== ENCOUNTER → 2021-01-21 | Day surgery (SDC) | payer MEDICARE, BC ==
[2021-01-16 15:31] VITALS: BMI 33.6
[~2021-01-21] MED LIST: LACTATED RINGERS 1,000 ML IV SCH; MIDAZOLAM 2 MG/2 ML VIAL ONE; PROPOFOL 10 MG/ML 20 ML VIAL IV ONE; fentaNYL (PF) 50 MCG/ML 2 ML AMP ONE
[2021-01-21 10:05] VITALS: TEMP 97.9
--- NOTE | 2021-01-21 10:43 | P.GSHP ---
History of Present Illness H&P Date: 01/21/21 Chief Complaint: Change in bowel habits, diverticulitis Patient here today for colonoscopy. Episode of diverticulitis approximately 8-9 weeks ago. No family history of colon cancer. No rectal bleeding. Last colonoscopy 9 years ago. Past Medical History Past Medical History: Hyperlipidemia, Osteoarthritis (OA), Thyroid Disorder Additional Past Medical History / Comment(s): DX WITH DIVERTICULITIS 10/23/20 History of Any Multi-Drug Resistant Organisms: None Reported Past Surgical History: Hysterectomy, Joint Replacement, Orthopedic Surgery Additional Past Surgical History / Comment(s): total left knee, right toe bone spur removal, partial hyterectomy , COLONOSCOPY Past Anesthesia/Blood Transfusion Reactions: No Reported Reaction Smoking Status: Current some day smoker - Past Family History Brother(s) Family Medical History: Cancer Medications and Allergies Home Medications Medication Instructions Recorded Confirmed Type Aspirin EC [Ecotrin Low Dose] 81 mg PO Q48H 10/23/20 01/21/21 History Calcium Carbonate/Vitamin D3 1 tab PO DAILY 10/23/20 01/21/21 History [Calcium 500 mg-Vit D3 5 mcg (200 Unit)] Cholecalciferol [Vitamin D3 (25 25 mcg PO DAILY 10/23/20 01/21/21 History Mcg = 1000 Iu)] Citalopram Hydrobromide [CeleXA] 10 mg PO DAILY 10/23/20 01/21/21 History Levothyroxine Sodium [Synthroid] 88 mcg PO DAILY 10/23/20 01/21/21 History Pravastatin Sodium [Pravachol] 40 mg PO DAILY 10/23/20 01/21/21 History Ubidecarenone [Co Q-10] 100 mg PO DAILY 10/23/20 01/21/21 History Allergies Allergy/AdvReac Type Severity Reaction Status Date / Time No Known Allergies Allergy Verified 01/21/21 09:55 Surgical - Exam Vital Signs Temp Pulse Resp BP Pulse Ox 97.9 F 95 18 130/63 95 01/21/21 10:04 01/21/21 10:04 01/21/21 10:04 01/21/21 10:04 01/21/21 10:04 Physical exam: General: Well-developed, well-nourished HEENT: Normocephalic, sclerae nonicteric Abdomen: Nontender, nondistended Extremities: No edema Neuro: Alert and oriented Assessment and Plan (1) Diverticulitis Narrative/Plan: Will proceed with colonoscopy at this time. Current Visit: No Status: Acute Code(s): K57.92 - DVTRCLI OF INTEST, PART UNSP, W/O PERF OR ABSCESS W/O BLEED SNOMED Code(s): 368228944
--- NOTE | 2021-01-21 10:54 | P.PCN ---
Date of Procedure: 01/21/21 Procedure(s) Performed: PREOPERATIVE DIAGNOSIS: Diverticulitis POSTOPERATIVE DIAGNOSIS: Diverticulosis, tortuous colon PROCEDURE: Colonoscopy to the mid sigmoid colon unable to advance further because of tortuosity ANESTHESIA: MAC SURGEON: Ming Martinez M.D. SPECIMENS: None ENDOSCOPIC PROCEDURE: The patient was placed on the endoscopy table in the left decubitus position. The Olympus colonoscope was inserted into the anus and passed under direct visualization to the mid sigmoid colon. Patient had s ignificant tortuosity. I was unable to advance any more proximal than that spite multiple times. The scope was withdrawn. There was mild diverticulosis noted. Significant tortuosity was seen. Digital rectal examination was normal. The patient was taken to the recovery room in stable condition per anesthesia guidelines. RECOMMENDATIONS: Will discuss options a barium enema with patient.
[2021-01-21 11:03] VITALS: PULSE 78; RESP 16
[2021-01-21 11:13] VITALS: BP 137/80
--- NOTE | 2021-01-21 15:17 | XR ---
Abdomen HISTORY: Postcolonoscopy, incomplete colonoscopy Single frontal view of the abdomen Air-filled colon is present. Sclerosis present at pubic symphysis. Osteophytic changes present at the right hip. Degenerative disc change noted in the visualized spine. Lung bases are not included on th e exam. No evident pneumoperitoneum. IMPRESSION: Nonobstructive bowel gas pattern.
== END ==
LOC: ORWHC2ENDO 09:44
PROVIDERS: ATTEND Surgery
DX: K57.32 Diverticulitis of large intestine without perforation or abscess without bleeding (principal); Q43.8 Other specified congenital malformations of intestine; E78.5 Hyperlipidemia, unspecified; M19.90 Unspecified osteoarthritis, unspecified site; E07.9 Disorder of thyroid, unspecified; Z90.710 Acquired absence of both cervix and uterus; Z87.19 Personal history of other diseases of the digestive system; F17.210 Nicotine dependence, cigarettes, uncomplicated; F41.9 Anxiety disorder, unspecified; Z96.652 Presence of left artificial knee joint; Z98.890 Other specified postprocedural states; Z80.9 Family history of malignant neoplasm, unspecified; Z79.82 Long term (current) use of aspirin; Z79.890 Hormone replacement therapy; Z79.899 Other long term (current) drug therapy
CPT/HCPCS: 74018; 45378; J2250; J3010; J2704

== ENCOUNTER → 2021-01-22 | Outpatient (CLI) | payer MEDICARE, BC ==
--- NOTE | 2021-01-22 09:50 | FL ---
EXAMINATION TYPE: FL barium enema DATE OF EXAM: 01/22/2021 COMPARISON: CT 10/23/2020 HISTORY: Incomplete colonoscopy TECHNIQUE: A double contrast barium enema study is performed. A total of 4 minutes 20 seconds of fl uoroscopic time was utilized during procedure and 20 images obtained. FINDINGS: Cardiac Cath Technician view of the abdomen shows overall non-obstructive bowel gas pattern. No evidence of any mass or polyp, obstructing or constricting lesion throughout the colon. Extensive diverticular change is present. Redundancy of the sigmoid colon could limit the evaluation. No obstruction to flow. IMPRESSION: Extensive diverticulosis, redundant sigmoid colon
== END | disposition home or self-care (01) ==
LOC: RADFLMAIN 07:34
PROVIDERS: ATTEND Surgery
DX: K57.30 Diverticulosis of large intestine without perforation or abscess without bleeding (principal)
CPT/HCPCS: 74270